=== PATIENT | male | born 1940 | race African-American/Black ===

== ENCOUNTER 2024-12-11 10:09 | Emergency (ER) | payer OTHER ==
[~2024-12-11] VITALS: Ht 177.8 cm; Wt 80.0 kg
[2024-12-11 10:12] VITALS: O2SAT 99
[2024-12-11 10:49] LABS: BASOPHILS % 0.7 % (0.0-2.0); EOSINOPHILS % 1.3 % (0.0-5.0); HEMATOCRIT. 36.2 % (42.0-52.0); HEMOGLOBIN. 12.0 g/dL (14.0-18.0); LYMPHOCYTES % 13.2 % (20.0-50.0); MEAN PLATELET VOLUME 8.6 fl (7.4-10.4); MONOCYTES % 8.5 % (2.0-8.0); NEUTROPHILS % 76.3 % (40.0-76.0); PLATELET 289 x1000/uL (130-400); RED BLOOD CELL COUNT 3.92 mill/uL (4.7-6.1); RED CELL DISTRIBUTION WIDTH 14.9 % (11.6-14.6)
[2024-12-11 11:02] LABS: CREATININE 1.0 mg/dL (0.6-1.3); UREA NITROGEN BLOOD 21 mg/dL (9-23)
[2024-12-11] MEDS: MORPHINE SULFATE 2 MG/ML INJ (NOT FOR IM USE) IV ONE (11:05)
[2024-12-11] MEDS: KETOROLAC 15MG/ML VIAL IV ONE (11:05)
[2024-12-11] MEDS: IBUPROFEN 400MG TABLET PO ONE (14:49)
[2024-12-11] MEDS: ACETAMINOPHEN WITH CODEINE 300/30MG TABLET PO ONE (14:49)
[2024-12-11] MEDS ORDERED: IBUP-2028 MT (15:18)
[2024-12-11 17:05] VITALS: BP 164/75; PULSE 88; RESP 19; TEMP 36.8; O2SAT 95
== END 2024-12-11 17:09 | disposition home or self-care (01) ==
LOC: ER 10:09
DX: G89.18 Other acute postprocedural pain (principal); M54.9 Dorsalgia, unspecified; I10 Essential (primary) hypertension
CPT/HCPCS: 99285; 96374; 72131; 96375; 80048; 85025; 36415; J1885; J2270